=== PATIENT | female | born 1945 | race Caucasian/White ===

== ENCOUNTER → 2018-07-22 | Outpatient (CLI) | payer MEDICARE ==
[~2018-07-22] MED LIST: ASPI-515 PO; CEFD300C37 PO; CIPR500T87 PO; ENOX100S5 SQ; FLUT1DIS3 INH; KETO10TA PO; LISI-170 PO; LOSA25TA25 PO; OXYC-302 PO; TIOT18CA INH; WARF7.5T PO
== END | disposition home or self-care (01) ==
LOC: CFH 14:09
PROVIDERS: ATTEND Family Medicine
DX: Z12.31 Encounter for screening mammogram for malignant neoplasm of breast (principal); R92.8 Other abnormal and inconclusive findings on diagnostic imaging of breast; M81.0 Age-related osteoporosis without current pathological fracture; M85.89 Other specified disorders of bone density and structure, multiple sites
CPT/HCPCS: 77063; 77080; 77067

== ENCOUNTER → 2019-05-20 | Outpatient (CLI) | payer MEDICARE | END | disposition home or self-care (01) | LOC: CVU 13:54 | PROVIDERS: ATTEND Family Medicine | DX: M79.89 Other specified soft tissue disorders (principal); R60.0 Localized edema; R23.0 Cyanosis | CPT/HCPCS: 93922; 93970 ==